=== PATIENT | female | born 1950 | race American Indian/Alaskan Native ===

== ENCOUNTER 2017-01-23 20:08 | Inpatient (IN) | payer OTHER ==
[2017-01-23] MEDS ORDERED: TYLENOL ONE (21:15)
[2017-01-23] MEDS ORDERED: NACL 0.9% 500 ML 500 ML IV ONE (21:33)
[2017-01-23 22:28] LABS: Basophils % (Auto) 0.8 % (0.0-1.8); Hematocrit 44.1 % (30.3-42.9); Hemoglobin 14.6 gm/dl (10.1-14.3); Mean Corpuscular HGB Conc 33 % (30-34); Mean Corpuscular Hemoglobin 29 pg (28-32); Mean Corpuscular Volume 87 fl (79-97); Platelet Count 154 K/mm3 (140-440); Red Blood Count 5.07 M/mm3 (3.65-5.03); Red Cell Distribution Width 13.4 % (13.2-15.2); White Blood Count 7.3 K/mm3 (4.5-11.0)
[2017-01-23 22:39] LABS: INR 1.07 (0.87-1.13)
[2017-01-23 22:47] LABS: Alanine Aminotransferase 17 units/L (7-56); Albumin 3.9 g/dL (3.9-5); Alkaline Phosphatase 54 units/L (35-129); Anion Gap 19 mmol/L; BUN/Creatinine Ratio 16.66; Bilirubin,Total 1.7 mg/dL (0.1-1.2); Blood Urea Nitrogen 15 mg/dL (7-17); Calcium 9.1 mg/dL (8.4-10.2); Carbon Dioxide 23 mmol/L (22-30); Chloride 96.8 mmol/L (98-107); Glucose 152 mg/dL (65-100); Potassium 3.2 mmol/L (3.6-5.0); Sodium 136 mmol/L (137-145); Total Protein 7.7 g/dL (6.3-8.2)
[2017-01-23] MEDS ORDERED: TYLENOL PO ONE (23:29)
[2017-01-23] MEDS ORDERED: MORPHINE IV ONE (23:52)
[2017-01-23] MEDS ORDERED: K-DUR PO ONE (23:52)
--- NOTE | 2017-01-24 00:16 | Emergency Department Report ---
HPI - General Chief Complaint: Fever Time Seen by Provider: 01/23/17 23:27 - HPI HPI: This is a 66-year-old female presents to the emergency department with a one- week history of intermittent bitemporal headache, body aches and subjective fever. Patient recently returned from a one-month trip to [facility]. Patient has not taken anything for symptoms prior to presentation. She denies any type of pertinent vaccinations or prophylaxis prior to her trip. Patient says that she previously had malaria one time in [place] but it was treated. She denies any other significant past medical history other than "my blood pressure sometimes goes up and down." No sick contacts at home. She has a primary care doctor but cannot refer their name. She denies any significant cough, dysuria, diarrhea, chest pain, shortness of breath. ED Past Medical Hx - Past Medical History Previous Medical History?: No - Surgical History Past Surgical History?: Yes Hx Appendectomy: Yes Additional Surgical History: hyster - Social History Smoking Status: Never Smoker Substance Use Type: None - Medications Home Medications: Home Medications Medication Instructions Recorded Confirmed Last Taken Type No Known Home Medications [No 01/24/17 01/24/17 Unknown History Reported Home Medications] ED Review of Systems ROS: Stated complaint: FLU SX/BODY ACHE/FEVER/MALAVE Other details as noted in HPI Constitutional: fever. denies: weakness Eyes: denies: eye pain, eye discharge, vision change ENT: denies: ear pain, throat pain Respiratory: denies: shortness of breath, wheezing Cardiovascular: denies: chest pain, palpitations Gastrointestinal: denies: abdominal pain, nausea, diarrhea Genitourinary: denies: urgency, dysuria, discharge Musculoskeletal: myalgia. denies: joint swelling Skin: denies: rash, lesions Neurological: headache. denies: numbness, paresthesias Physical Exam - Physical Exam Vital Signs: Vital Signs 01/23/17 01/23/17 01/23/17 21:10 21:15 23:20 Temperature 103 F H Pulse Rate 111 H Respiratory 18 18 Rate Blood Pressure 156/102 O2 Sat by Pulse 98 97 Oximetry 01/23/17 01/23/17 23:26 23:30 Temperature Pulse Rate 90 91 H Respiratory 23 22 Rate Blood Pressure 181/88 181/88 O2 Sat by Pulse 97 97 Oximetry Physical Exam: GENERAL: The patient is well-developed well-nourished. HEENT: Normocephalic. Atraumatic. Extraocular motions are intact. Patient has moist mucous membranes. Pupils equal reactive to light bilaterally. No nystagmus. NECK: Supple. Trachea is midline. CHEST/LUNGS: Clear to auscultation. No cough heard during examination. There is no respiratory distress noted. HEART/CARDIOVASCULAR: Regular. There is mild tachycardia. There is no gallop rub or murmur. ABDOMEN: Abdomen is soft, nontender. Patient has normal bowel sounds. There is no abdominal distention. SKIN: Skin is hot but dry. NEURO: The patient is awake, alert, and oriented. The patient is cooperative. The patient has no focal neurologic deficits. The patient has normal speech and gait. Cranial nerves II through XII grossly intact. Patient MUSCULOSKELETAL: There is no tenderness or deformity. There is no limitation range of motion. There is no evidence of acute injury. Cap refill less than 2 seconds. Radial pulses +2/4 bilaterally. ED Course Vital Signs 01/23/17 01/23/17 01/23/17 21:10 21:15 23:20 Temperature 103 F H Pulse Rate 111 H Respiratory 18 18 Rate Blood Pressure 156/102 O2 Sat by Pulse 98 97 Oximetry 01/23/17 01/23/17 23:26 23:30 Temperature Pulse Rate 90 91 H Respiratory 23 22 Rate Blood Pressure 181/88 181/88 O2 Sat by Pulse 97 97 Oximetry ED Medical Decision Making - Lab Data Result diagrams: 01/23/17 21:54 01/23/17 21:54 - Radiology Data Radiology results: report reviewed, image reviewed interpreted by me: Chest x-ray did not show any acute process. Heart is normal shape and size. No effusions. No pneumothorax. No signs of pneumonia seen. CT of the head does not show any acute process including no hemorrhage, mass, shift, diffuse edema or skull fracture. - Medical Decision Making 66-year-old female presents to the emergency department with a one-week history of intermittent fevers, headaches, body aches and occasionally a cough. This all began just as the patient returned from one-month trip in [facility]. The patient did not do any prophylaxis prior to her trip including anything for yellow fever or malaria. For this reason a peripheral blood smear was sent. While the full results of the smear have not yet come back showing any particular species, I was called by the lab saying that there was a round/ring structures that appear consistent with a positive for malaria. We do not yet have speciation and that would be done today on 01/24/17. Patient had a chest x-ray that did not show any acute process. There was a CT of the head without contrast that did not show any acute process. Patient was given Tylenol and ibuprofen for her fever with some resolution. Patient is feeling slightly better. I attempted to get in touch with the infectious disease physician for guidance on treatment for malaria without knowing the particular species. However I was unable to get in touch with infectious disease overnight. I spoke with the pharmacist who says that we have malarone and plaquinil or treatment so both were started. The patient will be admitted to hospital for further evaluation into the particular malaria species and hopefully an infectious disease consult. She has been accepted for admission by the hospitalist, Dr. Fernandez. - Differential Diagnosis malaria, yellow fever, pneumonia, viral syndrome Critical Care Time: No Critical care attestation.: If time is entered above; I have spent that time in minutes in the direct care of this critically ill patient, excluding procedure time. ED Disposition Clinical Impression: Malaria, Hypokalemia Fever Qualifiers: Fever type: unspecified Qualified Code(s): R50.9 - Fever, unspecified Headache Qualifiers: Headache type: unspecified Headache chronicity pattern: episodic headache Intractability: not intractable Qualified Code(s): R51 - Headache Hypertension Qualifiers: Hypertension type: essential hypertension Qualified Code(s): I10 - Essential ( primary) hypertension Disposition: OP ADMITTED IP TO THIS HOSP Is pt being admited?: Yes Condition: Stable Instructions: Hypertension (ED) Referrals: PRIMARY CARE, [Primary Care Provider] - 3-5 Days Forms: Accompanied Note Time of Disposition: 05:57
[2017-01-24 01:01] LABS: Bilirubin,Urine NEG (Negative); Blood,Urine NEG (Negative); Ketones,Urine NEG (Negative); Leukocyte Esterase,Urine TR (Negative); Mucus,Urine 1+ /HPF; Nitrite,Urine NEG (Negative); Urobilinogen,Urine < 2.0 mg/dL (<2.0)
--- NOTE | 2017-01-24 01:07 | Cat Scan Report ---
FINAL REPORT EXAM: CT HEAD/BRAIN WO CON HISTORY: MALAVE COMPARISON: None available. TECHNIQUE: Axial images obtained skull base through vertex. FINDINGS: No acute intracranial hemorrhage, midline shift or pathologic extra axial fluid collection. Ventricles and cisterns are normal in size and configuration for the patient's age. Rene-white differentiation preserved. Calvarium grossly intact. Opacification left mastoid air cells and tympanic cavity. Right mastoid air cells and tympanic cavity are clear. Minimal mucosal thickening the visualized paranasal sinuses. Visualized orbits are grossly unremarkable. IMPRESSION: No grossly acute intracranial abnormality. Opacification left mastoid air cells and tympanic cavity.
[2017-01-24] MEDS ORDERED: PLAQUENIL PO ONE (02:26)
[2017-01-24] MEDS ORDERED: TYLENOL PO PRN (04:06)
[2017-01-24] MEDS ORDERED: ZOFRAN IV PRN (04:06)
[2017-01-24] MEDS ORDERED: MORPHINE IV PRN (04:06)
[2017-01-24] MEDS ORDERED: MILK OF MAGNESIA PO PRN (04:06)
[2017-01-24] MEDS ORDERED: DULCOLAX PR PRN (04:06)
--- NOTE | 2017-01-24 04:09 | History and Physical Report ---
History of Present Illness Date of examination: 01/24/17 History of present illness: Prescription [id number] woman with no medical problems comes emergency room with complaints of fever, chills, body aches generalized and headache for one week. Patient just returned from [facility] a week ago. A blood smear was done, preliminary results came back positive for malaria Patient denies chest pain, palpitation, shortness of breath, cough, abdominal pain, hematochezia, dysuria, frequency, focal weakness, dysarthria, polydipsia polyuria, hot or cold intolerance, easy bruisability, or rash or bleeding from mucosal membrane, rhinorrhea, epistaxis, earache, tinnitus, blurry vision, eye discharge, anxiety, depression. Other review of systems negative PAST SURGICAL HISTORY: Hysterectomy, appendectomy SOCIAL HISTORY: Has alcohol, tobacco, drugs FAMILY HISTORY: Hypertension Medications and Allergies Allergies Allergy/AdvReac Type Severity Reaction Status Date / Time No Known Allergies Allergy Verified 01/23/17 21:16 Home Medications Medication Instructions Recorded Confirmed Last Taken Type No Known Home Medications [No 01/24/17 01/24/17 Unknown History Reported Home Medications] Active Meds: Active Medications Miscellaneous Medication (Malarone) 1,000 mg PO QDAY TU Stop: 01/26/17 10:01 Exam - Physical Exam Narrative exam: Gen. appearance: Patient lying in bed, no apparent distress HEENT: Normocephalic, atraumatic, pupils equally round and reactive to light, extraocular movement intact, and no sclericterus,. No JVD or thyromegaly or nodule,neck supple, no carotid bruit ,mucous membranes moist, no exudate or erythema Heart: S1, S2, regular rate and rhythm Lungs: Clear to auscultation bilaterally, breathing comfortable Abdomen: Positive bowel sounds, nontender, nondistended, no organomegaly Extremity: No edema, cyanosis, clubbing Skin: No rash, nodules, warm, dry Neuro: Oriented 3, cranial nerves II-12 intact, speech is fluent, motor and sensory intact - Constitutional Vitals: Temp Pulse Resp BP Pulse Ox 100.8 F H 93 H 20 147/78 97 01/24/17 01:42 01/24/17 01:42 01/24/17 01:42 01/24/17 01:42 01/23/17 23:30 Results - Labs CBC & Chem 7: 01/23/17 21:54 01/23/17 21:54 Labs: Abnormal lab results 01/23/17 01/23/17 01/23/17 Range/Units 21:54 21:54 21:54 RBC 5.07 H (3.65-5.03) M/mm3 Hgb 14.6 H (10.1-14.3) gm/dl Hct 44.1 H (30.3-42.9) % Lymph % (Auto) 10.9 L (13.4-35.0) % [place] % (Auto) 11.5 H (0.0-7.3) % Lymph # 0.8 L (1.2-5.4) K/mm3 Seg Neutrophils % 76.8 H (40.0-70.0) % Sodium 136 L (137-145) mmol/L Potassium 3.2 L (3.6-5.0) mmol/L Chloride 96.8 L (98-107) mmol/L Glucose 152 H (65-100) mg/dL Lactic Acid 2.5 H* (0.7-2.0) mmol/L Total Bilirubin 1.7 H (0.1-1.2) mg/dL 01/24/17 Range/Units 00:42 RBC (3.65-5.03) M/mm3 Hgb (10.1-14.3) gm/dl Hct (30.3-42.9) % Lymph % (Auto) (13.4-35.0) % [place] % (Auto) (0.0-7.3) % Lymph # (1.2-5.4) K/mm3 Seg Neutrophils % (40.0-70.0) % Sodium (137-145) mmol/L Potassium (3.6-5.0) mmol/L Chloride (98-107) mmol/L Glucose (65-100) mg/dL Lactic Acid 2.5 H* (0.7-2.0) mmol/L Total Bilirubin (0.1-1.2) mg/dL - Imaging and Cardiology Chest x-ray: image reviewed CT Scan - head: report reviewed Assessment and Plan Acute malarial illness Admits medicine Status post malarone and Plaquenil Continue malarone, consult ID Start DVT prophylaxis
--- NOTE | 2017-01-24 09:04 | XRay Report ---
Portable chest: There is blunting of the lateral costophrenic angle. The lungs otherwise are clear with no nodule nor infiltrate. The heart is normal in size and is no vascular congestion. No prior exam for comparison. Impression: Blunted left angle which could represent either atelectasis, fluid, or scarring.
[2017-01-24] MEDS: LOVENOX SUB-Q SCH (09:43)
[2017-01-24] MEDS ORDERED: ATOVAQUONE PO SCH (10:00)
[2017-01-24] MEDS ORDERED: PROGUANIL PO SCH (10:00)
--- NOTE | 2017-01-24 10:53 | Admit Criteria Form ---
Admission Criteria Documentation: FEVER Clinical Indications for Inpatient Care (Place 'X' for any and all applicable criteria): Ongoing inpatient care may be indicated for fever with ANY ONE of the following[ D] (5)(27)(28)(29)(30)(31): [ ]I. Bacteremia [ ]II. Evidence of significant systemic illness as indicated by ANY ONE of the following: [ ]a) Persistently high temperatures greater than 103.1 degrees F ( 39.5 degrees C) (oral) [ ]b) New-onset hypoxia [ ]c) Hemodynamic instability [ ]d) Mental status changes [ ]e) Decreased urine output due to developing renal insufficiency [ ]f) New focal neurologic deficit (eg, stroke) [ ]g) Seizures [ ]h) Rigors [ ]i) Dehydration or hypovolemia [ ]j) Inadequate oral intake [ ]III. Patient in the immediate postoperative period with ANY ONE of the following (E)(23)(24): [ ]a) Evidence of specific localizing infection requiring ongoing inpatient evaluation or treatment (eg,abscess, severe pneumonia, wound infection ) [ ]b) Known or suspected cause of fever requiring ongoing inpatient evaluation or treatment (eg, DVT) [ ]c) Evidence of malignant hyperthermia (eg, unexplained tachycardia and muscle rigidity after depolarizing muscular blocking agent or inhaled anesthetic agent) [X]IV. Suspected cause requiring acute care (eg, endocarditis, meningitis) [ ]V. High suspicion of bacteremia as indicated by severe constitutional symptoms in patient at high risk as indicated by ANY ONE of the following: [ ]a) Immunocompromised state [D](22) [ ]b) Age <3 years or >65 years [ ]c) Severe comorbidities (eg, poorly controlled diabetes, severe COPD) [ ]. High suspicion for fungal infection as indicated by ANY ONE of the following (22)(25): [ ]a) Febrile neutropenia (WBC <500/mm3 (0.5 X 109/L)) for >4 days despite broad spectrum antibiotics [ ]b) Imaging findings suggestive of fungal infection [ ]c) Immunocompromised state [ ]d) Immunocompromised patient colonized with Aspergillus species [ ]VII. Evidence of infection of medical devices such as implanted catheters or exposed hardware [ ]VIII. Suspected neuroleptic malignant syndrome as evidenced by ALL of the following (15): [ ]a) Recent use of neuroleptic medication (eg, haloperidol, prochlorperazine, metoclopramide) [ ]b) New-onset muscle rigidity Extended stay beyond goal length of stay for primary condition may be needed until ALL of the following are present(16)(17)(18)(19)(20)(21): [ ]a) Temperature status acceptable as indicated by ANY ONE of the following: [ ]i) Temp <38.1C (100.5 F) (oral) [ ]ii) Temp as expected for disease process and care performable at next level of care [ ]b) Hemodynamic stability [ ]c) Cultures negative or infection identified and under adequate treatment [ ]d) Behavior or mental status abnormalities absent or manageable at lower level of care (Also use Mental Status Change Criteria Form) for further information. [ ]e) Medical comorbidities absent or manageable at a lower level of care The original [facility] content created by [facility] has been revised. The portions of the content which have been revised are identified through the use of italic text or in bold, and [facility] [employer] has neither reviewed nor approved the modified material. All other unmodified content is copyright [facility]. Please see references footnoted in the original [facility] edition 2016 Admission Criteria Met: Yes
[2017-01-24] MEDS: MALARONE PO SCH (12:39)
--- NOTE | 2017-01-24 13:47 | Event Note ---
Date: 01/24/17 Patient seen and evaluated in her room this morning medical records reviewed Admitted this morning with fever with chills and lactic acidosis and Malaria Patient feels better denies any nausea vomiting, denies fever or chills Alert awake oriented 3 Vital signs reviewed, medical records reviewed, agreed with the current management Pending ID evaluation Plan of care discussed with the patient as well as her nurse
--- NOTE | 2017-01-24 19:46 | Consultation ---
History of Present Illness - Reason for Consult Consult date: 01/24/17 malaria Requesting physician: ELLE WOODS - History of Present Illness Patient is 67 year-old woman with no medical problems comes emergency room with complaints of fever, chills, body aches generalized and headache for one week. Patient just returned from [facility] a week ago. A blood smear was done, preliminary results came back positive for malaria Patient denies chest pain, palpitation, shortness of breath, cough, abdominal pain, hematochezia, dysuria, frequency, focal weakness, dysarthria, polydipsia polyuria, hot or cold intolerance, easy bruisability, or rash or bleeding from mucosal membrane, rhinorrhea, epistaxis, earache, tinnitus, blurry vision, eye discharge, anxiety, depression. Other review of systems negative. Infectious disease consulted for appropriate management. Patient seen at bedside. She says she feels better. 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 Upon return\, she developed the fever which had been ongoing for a week. PHYSICAL EXAM. VS - AFEBRILE. TMAX EARLIER 103.2. CHEST - GOOD AIR ENTRY CVS - S1S2 ABD - BS + LABS reviewed. see lab section. ASSESSMENT 1. Malaria - based on history and the reported positive smear for malaria. Also , since commencing malarone, fever is resolving. 2. obesity RECOMMENDATION 1.Continue malarone to complete three days. 2. d/c planning if no fever in am Medications and Allergies Allergies Allergy/AdvReac Type Severity Reaction Status Date / Time No Known Allergies Allergy Verified 01/23/17 21:16 Home Medications Medication Instructions Recorded Confirmed Last Taken Type No Known Home Medications [No 01/24/17 01/24/17 Unknown History Reported Home Medications] Active Meds: Active Medications Acetaminophen (Tylenol) 650 mg PO Q4H PRN PRN Reason: Pain MILD(1-3)/Fever >100.5/MALAVE Last Admin: 01/24/17 09:43 Dose: 650 mg Atovaquone/Proguanil (Malarone 250-100 Mg (Nf)) 4 each PO DAILY TU Stop: 01/26/17 10:01 Last Admin: 01/24/17 12:39 Dose: 4 each Bisacodyl (Dulcolax) 10 mg AK QDAY PRN PRN Reason: Constipation unrelieved by MOM Enoxaparin Sodium (Lovenox) 40 mg SUB-Q QDAY TU Last Admin: 01/24/17 09:43 Dose: 40 mg Magnesium Hydroxide (Milk Of Magnesia) 30 ml PO Q4H PRN PRN Reason: Constipation Morphine Sulfate (Morphine) 2 mg IV Q4H PRN PRN Reason: Pain, Moderate (4-6) Ondansetron HCl (Zofran) 4 mg IV Q4H PRN PRN Reason: N/V unrelieved by Reglan Physical Examination - Constitutional Vitals: Vital Signs Temp Pulse Resp BP Pulse Ox 98.1 F 73 18 118/66 99 01/24/17 16:00 01/24/17 16:00 01/24/17 16:00 01/24/17 16:00 01/24/17 09:24 Temperature -Last 24 Hours Temperature 98.1 F Temperature 100.4 F Results - Labs CBC & Chem 7: 01/23/17 21:54 01/23/17 21:54
[2017-01-25 09:23] VITALS: BP 149/81
--- NOTE | 2017-01-25 10:52 | Discharge Summary ---
Providers - Providers Date of Admission: 01/24/17 04:07 Date of discharge: 01/25/17 Attending physician: ARSEN GOFF Primary care physician: WEB CONTENT COORDINATOR Hospitalization Reason for admission: fever chills and rigors after returning from [place] Condition: Stable Pertinent studies: Blood smear; positive for Plasmodium falciparum. Parasite Blood cultures negative to date Urine cultures; negative to date Intrinsically A & B; negative CT head without contrast no gross acute intracranial abnormality noted opacification of left mastoid air cells and tympanic cavity[and advised to see ENT] Chest x-ray; blunted angle could represent atelectasis/fluid or scarring, patient advised to follow with primary care physician for further evaluation Hospital course: Very pleasant 67-year-old -[place] female patient recently returned from [place] presented to the emergency room with fever chills body aches and headache of one "week duration Patient was initially evaluated blood smears positive for Malaria Admitted to the hospital being managed with Malarone, evaluated by ID as recommended total 3 doses of 4 tablets of Malarone and advised to discharge if afebrile today Today patient is comfortable and denies any nausea vomiting or abdominal pain Denies fever or chills, alert awake oriented 3 not in acute distress Vital signs reviewed, patient is afebrile [id number] evaluation and physical examination done by me prior to discharge did not show any new changes as detailed below Patient is hemodynamically and clinically stable for discharge and follow up with his primary care physician within one week Diagnosis --plasmodium falciparum. malaria --Febrile illness --Lactic acidosis, improved -- hypokalemia corrected Disposition: DISCHARGED TO HOME OR SELFCARE Time spent for discharge: 31 min Core Measure Documentation - Palliative Care Palliative Care/ Comfort Measures: Not Applicable - Core Measures Any of the following diagnoses?: none Exam - Constitutional Vitals: Temp Pulse Resp BP Pulse Ox 98.3 F 69 18 149/81 96 01/25/17 08:00 01/25/17 08:00 01/25/17 08:00 01/25/17 08:00 01/25/17 08:00 General appearance: Present: no acute distress, well-nourished - EENT Eyes: Present: PERRL, EOM intact - Neck Neck: Present: supple, normal ROM - Respiratory Respiratory effort: normal Respiratory: bilateral: diminished, negative: rales, rhonchi, wheezing - Cardiovascular Rhythm: regular Heart Sounds: Present: S1 & S2 - Extremities Extremities: no ischemia, pulses intact, pulses symmetrical Peripheral Pulses: within normal limits - Abdominal General gastrointestinal: Present: soft, non-tender, non-distended, normal bowel sounds - Integumentary Integumentary: Present: clear, warm - Musculoskeletal Musculoskeletal: strength equal bilaterally - Psychiatric Psychiatric: appropriate mood/affect, cooperative - Neurologic Neurologic: CNII-XII intact, moves all extremities Plan Activity: no restrictions Diet: regular Additional Instructions: Fever with chills and rigors or chest pain and shortness of breath contact M.D. or go to emergency room. Follow primary care physician for further evaluation as needed Follow up with: PRIMARY CARE, [Primary Care Provider] - 3-5 Days Forms: Accompanied Note Prescriptions: Atovaquone/Proguanil HCl [Malarone 250-100 mg] 4 each PO DAILY #4 tab
[2017-01-25] MEDS: LOVENOX SUB-Q SCH (10:58)
[2017-01-25] MEDS: MALARONE PO SCH (11:02)
--- NOTE | 2017-01-25 21:14 | Progress Note ---
Subjective Date of service: 01/25/17 Principal diagnosis: malaria Interval history: Late note. Patient seen earlier in the morning. She had no complaints. No fever or chills. PHYSICAL EXAM. VS - AFEBRILE. TMAX EARLIER 98. CHEST - GOOD AIR ENTRY CVS - S1S2 ABD - BS + LABS reviewed. see lab section. ASSESSMENT 1. Malaria 2. obesity RECOMMENDATION 1.Patient stable for d/c and able to complete 3rd day of malarone at home. Objective - Constitutional Vitals: Vital Signs Temp Pulse Resp BP Pulse Ox 98.3 F 69 18 149/81 96 01/25/17 08:00 01/25/17 08:00 01/25/17 08:00 01/25/17 08:00 01/25/17 08:00 Temperature -Last 24 Hours Temperature 98.3 F Temperature 98.3 F - Labs CBC & Chem 7: 01/23/17 21:54 01/23/17 21:54
== END 2017-01-25 18:30 | disposition home or self-care (01) | DRG 868 ==
LOC: ED 20:08 → 3A 01-24 04:07
PROVIDERS: ADMIT Internal Medicine; ATTEND Internal Medicine
DX: B50.9 Plasmodium falciparum malaria, unspecified (principal); E87.2 Acidosis; E66.9 Obesity, unspecified; F17.200 Nicotine dependence, unspecified, uncomplicated; F19.90 Other psychoactive substance use, unspecified, uncomplicated; E87.6 Hypokalemia; I10 Essential (primary) hypertension; Z82.49 Family history of ischemic heart disease and other diseases of the circulatory system; Z90.710 Acquired absence of both cervix and uterus; Z68.29 Body mass index [BMI] 29.0-29.9, adult; Z72.89 Other problems related to lifestyle
CPT/HCPCS: 36415; 70450; 71010; 80053; 81001; 82140; 82805; 85025; 85610; 87040; 87086; 87207; 87400; 96374; J1650; J2270; J3246